=== PATIENT | male | born 1960 | race Caucasian/White ===

== ENCOUNTER 2023-08-11 08:28 | Outpatient (REF) | payer OTHER, SELFPAY | END 2023-08-11 08:29 | disposition home or self-care (01) | LOC: HO.SH 08:28 | PROVIDERS: PCP Internal Medicine; Visit Provider Internal Medicine | DX: H90.3 Sensorineural hearing loss, bilateral (principal) | CPT/HCPCS: 92557 ==

== ENCOUNTER 2024-05-21 08:57 | Outpatient (AMB) | payer OTHER, SELFPAY ==
--- NOTE | 2024-05-21 09:02 | MHC.PC.OV ---
Vital Signs 05/21/24 09:08 Height 5 ft 6.75 in Weight 165 lb BMI 26.0 BP 132/68 Blood Pressure Location Lt brachial Pulse 61 Temp 98.1 F Pulse Oximetry (%) 97 Intake Visit Reasons: physical Intake Note: patient has sore left arm for about 1 month Allergies No Known Allergies Allergy (Verified 05/21/24 09:49) Medication List - Last Reconciled 05/21/24 by Cheo Atwood MD bupropion HCl SR (Wellbutrin SR) 200 mg PO QAM [facility] Medical History (Updated 05/21/24 @ 09:51 by Cheo Atwood MD) Benign prostate hyperplasia Generalized anxiety disorder Physical exam (Primary Care) Vital Signs: Last Vital Signs Temp 98.1 F 05/21/24 09:08 Pulse 61 05/21/24 09:08 BP 132/68 05/21/24 09:08 Pulse Ox 97 05/21/24 09:08 BMI result Body Mass Index 26.0 Coding Level of Care Code New Pt Level 4 (53812) New Pt Prev Care 40-64y(95817) Diagnoses Benign prostate hyperplasia N40.0 Generalized anxiety disorder F41.1 Right shoulder strain S46.911A Annual physical exam Z00.00 Assessment & Plan Assessment & Plan (1) Benign prostate hyperplasia: Code(s): N40.0 - Benign prostatic hyperplasia without lower urinary tract symptoms Category: Medical Plan: PSA testing has been ordered. Urology appt requested. Continue Flomax at same dosage. (2) Generalized anxiety disorder: Code(s): F41.1 - Generalized anxiety disorder Category: Medical Plan: Symptoms are stable on Welbutrin. Continue medications at same dosage. (3) Right shoulder strain: Code(s): S46.911A - Strain of unspecified muscle, fascia and tendon at shoulder and upper arm level, right arm, initial encounter Plan: X ray of the shoulder ordered. (4) Annual physical exam: Code(s): Z00.00 - Encounter for general adult medical examination without abnormal findings Plan: Screening bw has been ordered. Plan History of Present Illness The patient is a 63-year-old male presenting for an annual physical. In addition he has complaints of left arm pain. He reports experiencing soreness as if it were a pulled muscle, which has been persistent for several months without resolution. There is no specific inciting event noted, and the pain persists despite his regular activity levels. Able to lift his arms over shoulder level. The patient maintains good general health otherwise, with no significant weight changes, and describes his overall health as stable. Additionally, he has a history of hepatitis C, which has been treated and resolved, with viral load monitoring discontinued. The patient also reports urinary symptoms consistent with benign prostatic hyperplasia. Despite treatment with Flomax, he continues to experience urinary dribbling and nocturia, though he states that his condition has improved compared to prior. He has seen a urologist within the past year, where no significant anatomical abnormalities were detected, and his PSA levels were deemed unremarkable for his age. 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 - Lives with his girlfriend in [place]. - Regularly walks for exercise and uses 10-pound weights occasionally. - Reports a stable weight around 165 pounds despite occasional ice cream consumption. 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 Review of Systems - Musculoskeletal: Reports persistent left arm pain with full range of motion. - Genitourinary: Reports urinary dribbling; denies split urine stream. - Constitutional: Denies significant weight change. - Neurological: Denies other neurological symptoms. - Sexual: Reports infrequent sexual activity but normal erectile function. Physical Exam General: Cooperative and healthy appearing Nutritional Appearance: Well nourished Orientation/consciousness: Patient oriented x3 Limitations: No limitations Head: Normal to inspection General: Appearance normal, both eyes and all related structures Neck: Normal visual inspection Chest: Normal palpation of entire chest wall Respiratory: Normal respiratory effort Neurology: Patient oriented x3 Gen: Penis: Normal, Scrotum: Normal. Testicles : Normal Results Plan - Obtain an X-ray of the left arm to assess for any underlying joint pathology. - Encourage daily exercise of the left arm to maintain range of motion and muscle strength. - Routine blood work to include anemia, glucose levels, cholesterol, kidney function, liver function, thyroid, and prostate assessments. - Discuss the potential need for an urology follow-up if urinary symptoms persist. - Consider adjustment of current medication regimen or addition of new therapies pending blood work results. Patient was informed and verbally consented to the use of an ambient scribe for clinic note documentation during this visit. Discussion Notes I discussed with the patient the management of his musculoskeletal pain by maintaining daily arm exercises to improve range of motion and muscle strength. I also informed him about obtaining an X-ray to further assess his left arm pain. We reviewed the standard blood work that will be conducted without the necessity of slips, and I explained the straightforward process he can expect at the lab located on [facility] or at the [facility]. In terms of urinary symptoms, I advised him that visiting a urologist may be beneficial if symptoms persist, and that there might be medication options to alleviate his current condition. Follow-up was suggested depending on the outcomes of tests and any exacerbation of symptoms. Patient Instructions - Proceed with an X-ray for your left arm as discussed. - Continue and maintain daily arm exercises to enhance strength and mobility. - Visit lab for routine blood tests as directed without needing a slip. - Monitor urinary symptoms, and schedule a follow-up with a urologist if they do not improve. - Consider integrating more consistent weight exercises to your routine to support muscle maintenance. Orders: Orders XR shoulder RT min 2V Today S43.401A - Unspecified sprain of right shoulder joint, initial encounter
[2024-05-21 09:08] VITALS: BP 132/68; PULSE 61; TEMP 36.7; O2SAT 97; BMI 26.0
--- OUTSIDE RECORDS SUMMARY | 2024-05-21 09:47 | XMS_ITS | Patient Health Record ---
Author Organization Braulio Chang DO, FACP Address [address], [place] [id number] Care Team Providers Care Tool Inspector Name Role Phone BernardoBraulio izaguirre Primary Care Provider ALLERGIES No Known Allergies REASON FOR REFERRAL No Information MEDICATIONS Medication SIG (Take, Route, Frequency, Duration) Notes Start Date End Date Status Tadalafil 20 MG 1 tablet as needed O rally Once a day Active Vitamin D (Cholecalciferol) 50 MCG (2000 UT) 1 capsule Orally Once a day Active buPROPion HCl ER (SR) 200 MG 1 tablet in the morning Orally Once a day for 90 days Active IMMUNIZATIONS Vaccine Route Administration Date Status Comme nts Influenza Quad IM Intramuscular 01/01/2015 Administered Influenza Quad IM Intramuscular 01/05/2016 Administered Influenza Quad IM Intramuscular 03/10/2020 Administered COVID-19 Pfizer BioNTech Unknown 08/08/2020 Administere d Shingrix Unknown 02/25/2021 Administered COVID-19 Pfizer Bivalent Unknown 03/16/2022 Administere d COVID-19 Moderna Vaccine Unknown 02/25/2021 Administere d Shingrix Unknown 04/27/2021 Administered Influenza Quad Unknown 03/16/2022 Administered COVID-19 Pfizer BioNTech Unknown 07/16/2020 Administere d Influenza Unknown 02/26/2019 Refused SOCIAL HISTORY Tobacco Use: Social History Observation Description Date Details (start date - stop date) Never Smoker NA - NA Sex Assigned At : Social History Observation Description Sex Assigned At Unknown Tobacco Use/Smoking Question Answer Notes Patient is a nonsmoker Additional Findings: Tobacco Non-User Cu rrent non-smoker, currently using no form of tobacco Alcohol Screen Question Answer Notes Did you have a drink contain ing alcohol in the past year? Yes How often did you have a dri nk containing alcohol in the past year? 2 to 4 times a month (2 points) How many drinks did you have on a typical day when you were drinking in the past year? 1 or 2 drinks (0 point) How often did you have 6 or more drinks on one occasion in the past year? Never (0 point) Points 2 Interpretation Negative PROBLEMS Problem Type ICD Code Onset Dates Problem Status W/U Status Risk SNOMED Code Notes Problem Tendonitis (M77.9) Active confirmed 72016608 Problem Vitamin D deficiency (E55.9) Active confirmed 78983780 Problem Paresthesia of skin (R20.2) Active confirmed Paresthesia (finding) (60748539) Problem Urinary frequency (R35.0) Active confirmed 001912829 Problem Dysthymia (F34.1) Active confirmed 37814591 Problem Blurred vision (H53.8) Active confirmed Blurred vision (810396597) Problem Benign prostatic hyperplasia with lower urinary tract symptoms (N40.1) Active confirmed [id number] Problem Elevated TSH (R94.6) Active confirmed 476839282 Encounters Encounter Location Date Provider Diagnosis Braulio Chang DO, [facility] [address], [place] [id number] 05/21/2024 Braulio Chang DO, [facility] [address], [place] [phone] 07/18/2023 Braulio Chang PLAN OF TREATMENT Pending Test Test Name Order Date CBC w DIFF 05/16/2023 TSH (THYROID STIMULATING HORMONE) 2023 VITAMIN D 25-OH TOTAL 05/16/2023 Urinalysis and Microscopic 05/16/2023 Liver Panel 05/16/2023 Basic Metabolic Panel Fasting 05/16/2023 Lipid Panel 05/16/2023 PSA,Total (Free>4and<10) 05/16/2023 Microalbumin, Random 05/16/2023 Hemoglobin A1c 05/16/2023 Insurance Providers Payer Name Payer Address Payer Phone Subscriber Number Group Number Insured Name Patient Relationship to Insured Coverage Start Date Coverage End Date [facility] [address] [place] [phone] [id number] Gianluca Avalos Self - patient is the insured MEDICAL (GENERAL) HISTORY Medical History History ICD Code depression hepatitis C, type 1A, in remission gastroesophageal reflux disease (GERD) substance abuse, IVDA, in recovery herpes genitalis cellulitis, right leg Surgical History Surgery Date(Month/Year) adenoidectomy liver biopsy
--- OUTSIDE RECORDS SUMMARY | 2024-05-21 09:47 | XMS_ITS ---
Author Organization Braulio Chang DO, FACP Address [address], [place] [id number] Care Team Providers Care Cash Surrender Calculator Name Role Phone Braulio Chang Primary Care Provider ALLERGIES No Known Allergies REASON FOR REFERRAL Reason Decreased hearing Diagnosis 1 Encounter for genera l adult medical examination without abnormal findings (Z00.00) Referral Organization Braulio Mcghee FACP Referring Provider First Name Braulio Referring Provider Last Name Bernardo Referring Provider Speciality Internal M edicine Referred Provider [facility] [place] [facility] [place] [place] Referred Provider Specialty Audiologists General Notes Arcelia Fabian 4 02:52:54 PM EST > Referral faxed prior to scheduling that office will call patient and patient is aware. Referral Priority Routine Referral Appointment Date 08/11/2023 Reason Urinary frequency Diagnosis 1 Urinary frequency (R 35.0) Referral Organization Braulio Mcghee FACP Referring Provider First Name Braulio Referring Provider Last Name Bernardo Referring Provider Speciality Internal edicine Referred Provider Alec Diaz Referred Provider Specialty Urology General Notes Arcelia Fabian 4 03:58:19 PM EST > Referral and notes faxed to [phone] and they will contact patient with appointment date and time. Patient is aware Referral Priority Routine REASON FOR VISIT physical, annual visit MEDICATIONS Medication SIG (Take, Route, Frequency, Duration) Notes Start Date End Date Status Tadalafil 20 MG 1 tablet as needed O rally Once a day Active Vitamin D (Cholecalciferol) 50 MCG (1999) 1 capsule Orally Once a day Active buPROPion HCl ER (SR) 200 MG 1 tablet in the morning Orally Once a day Active SOCIAL HISTORY Tobacco Use: Social History Observation [...] Never (0 point) Points 2 Interpretation Negative VITAL SIGNS BMI 26.03 kg/m2 05/16/2023 Blood pressure systolic 124 mm Hg 05/16/19 24 Blood pressure diastolic 62 mm Hg 024 Height 66.75 in 05/16/2023 Weight 165 lbs 05/16/2023 Encounters Encounter Location Date Provider Diagnosis Braulio Chang DO, [address] [phone] 05/16/2023 Braulio Chang Encounter for genera l adult medical examination without abnormal findings Z00.00 ; Urinary frequency R35.0 and Vitamin D deficiency E55.9 ASSESSMENTS Encounter Date Diagnosis Assessment Notes Treatment Notes Treatment Clinical Notes 05/16/2023 Encounter for general adult medical examination without abnormal findings (ICD-10 - Z00.00) 05/16/2023 Urinary frequency (ICD-10 - R35.0) 05/16/2023 Vitamin D deficiency (ICD-10 - E55.9) PLAN OF TREATMENT Medication Medication Name Sig Start Date Stop Date Notes Tadalafil 20 MG 1 tablet as needed O rally Once a day Vitamin D (Cholecalciferol) 50 MCG (1999 UT) 1 capsule Orally Once a day buPROPion HCl ER (SR) 200 MG 1 tablet in the morning Orally Once a day Pending Test Test Name Order Date CBC w DIFF 05/16/2023 TSH (THYROID STIMULATING HORMONE) 2023 VITAMIN D 25-OH TOTAL 05/16/2023 Urinalysis and Microscopic 05/16/2023 Liver Panel 05/16/2023 Basic Metabolic Panel Fasting 05/16/2023 Lipid Panel 05/16/2023 PSA,Total (Free>4and<10) 05/16/2023 Microalbumin, Random 05/16/2023 Hemoglobin A1c 05/16/2023 Referrals Referral Date Details 08/11/2023 08/11/2023, Decrease d hearing, Speech & [place] [facility] [place]inary frequency, D john Diaz Next Appt Details Follow Up: 1 Year, Reason: H &P Progress Notes * Examination Category Sub-Category Detail Notes General Examination GENERAL APPEARANCE: well dev eloped, well nourished, in no acute distress HEAD: normocephalic, atrau matic EYES: pupils equal, round, reactive to light and accommodation, sclera non-icteric EARS: auditory canal clear NECK/THYROID: neck supple, full ra nge of motion, no cervical lymphadenopathy, thyroid normal, no carotid bruit HEART: regular rate and rhy thm, S1, S2 normal, no murmurs CHEST: normal LUNGS: clear to auscultatio n bilaterally ABDOMEN: soft, nontender, non distended, bowel sounds present, normal NEUROLOGIC: nonfocal, motor stre ngth normal upper and lower extremities, sensory exam intact SKIN: warm and dry EXTREMITIES: no edema PERIPHERAL PULSES: 2+ dorsalis pedis, 2 + posterior tibial MALE GENITOURINARY no hernia, no penile lesions or discharge, no testicular mass, testes descended bilaterally PSYCH: alert, oriented, cog nitive function intact, cooperative with exam, good eye contact, judgement and insight good History and Physical Notes * HPI (History of Present Illness) Category Sub-Category Detail Notes Depression Screening PHQ-9 Little inte rest or pleasure in doing things: Not at all Feeling down, depressed, or hopeless: No t at all Trouble falling or staying asleep, or sl eeping too much: Not at all Feeling tired or having little energy: N ot at all Poor appetite or overeating: Not at all Feeling bad about yourself o r that you are a failure, or have let yourself or your family down: Not at all Trouble concentrating on thi ngs, such as reading the newspaper or watching television: Not at all Moving or speaking so slowly that other people could have noticed; or the opposite, being so fidgety or restless that you have been moving around a lot more than usual: Not at all Thoughts that you would be b key off or of hurting yourself in some way: Not at all Total Score: 0 Interpretation and Intervention Depression Scree ted Findings: Negative Follow-Up for Depression: : Review of PH Q-9 found negative result; no follow-up needed Fall Risk Fall History Have you had two or more fal ls in the past year?: No Have you had any falls with injury in th e past year?: No Fall Risk Assessment:: No falls in the p ast year Communication Needs PCMH Communication Needs - PCMH He aring Impairment?: Yes mild Vision Impairment?: Yes wears readers Cognitive Impairment?: No SDOH Questions SDOH Questions In the past year have you been worried about losing your housing?: Yes his building para professional may sell the building In the past year have you or any family members you live with been unable to get any of the following when it was really needed? Check all that apply:: None Consultation Request Notes Referral Date Referring Provider Referred Provider Not es 05/16/2023 Braulio Chang [facility] [place] [facility] [place] Dec reased hearing 05/16/2023 Braulio Chang Donald Urinary freq uency
--- OUTSIDE RECORDS SUMMARY | 2024-05-21 09:47 | XMS_ITS ---
Author Organization Braulio Chang DO, FACP Address [address] [place] [phone] Care Team Providers Care Ornamental Plaster Sticker Name Role Phone Braulio Chang Primary Care Provider Encounters Encounter Location Date Provider Diagnosis Braulio Chang DO, FACP [address] [place] [phone] 05/21/2024 Braulio Chang PLAN OF TREATMENT No Information
--- OUTSIDE RECORDS SUMMARY | 2024-05-21 09:47 | XMS_ITS ---
Author Organization Braulio Chang DO, FACP Address [address] [place] [phone] Care Team Providers Care Shank Tapper Name Role Phone Braulio Chang Primary Care Provider REASON FOR VISIT Switch to 90 day from 30 day for Buproprion MEDICATIONS Medication SIG (Take, Route, Frequency, Duration) Notes Start Date End Date Status buPROPion HCl ER (SR) 200 MG 1 tablet in the morning Orally Once a day for 90 days Active Encounters Encounter Location Date Provider Diagnosis Braulio Chang DO, FACP [address] [place] [phone] 07/18/2023 Braulio Chang PLAN OF TREATMENT Medication Medication Name Sig Start Date Stop Date Notes buPROPion HCl ER (SR) 200 MG 1 tablet in the morning Orally Once a day for 90 days
== END 2024-05-21 09:38 | disposition home or self-care (01) ==
LOC: HO.HMCSH 08:57
PROVIDERS: PCP Internal Medicine; Visit Provider Internal Medicine
DX: Z00.00 Encounter for general adult medical examination without abnormal findings (principal); S46.911A Strain of unspecified muscle, fascia and tendon at shoulder and upper arm level, right arm, initial encounter; N40.0 Benign prostatic hyperplasia without lower urinary tract symptoms; F41.1 Generalized anxiety disorder

== ENCOUNTER 2024-06-20 10:49 | Outpatient (REF) | payer OTHER, SELFPAY ==
--- NOTE | ~2024-06-20 | XR_ITS ---
EXAMINATION: XR SHOULDER 2 OR MORE VIEWS LEFT HISTORY: M25.512 - Pain in left shoulder COMPARISON: There are no prior studies available for comparison. FINDINGS: Five views of the left shoulder are submitted. Osseous mineralization is normal. There is no fracture or dislocation. The glenohumeral joint is maintained. There is mild narrowing of the AC joint. The soft tissues are unremarkable. XR/XR shoulder LT min 2V IMPRESSION: Mild narrowing of the AC joint. Electronically signed by: Braulio Marrero MD 06/20/2024 12:21 PM EDT
[2024-06-20 11:59] LABS: Appearance Urine Clear; Color Urine Dark Yellow; Glucose Urine UA Negative (Negative); Leukocyte Esterase Urine Negative (Negative); Nitrite Urine Negative (Negative); PH 5.5 (5.0-9.0); Specific Gravity - Urine >= 1.030 (1.005-1.025); Urine Blood Negative (Negative); Urine Ketones Trace mg/dL (Negative); Urine Protein Negative (Neg-Trace)
[2024-06-20 12:00] LABS: Hemoglobin 14.9 g/dl (14.0-18.0); Mean Corpuscular HGB Conc 35.5 g/dl (31.0-36.0); Mean Corpuscular Hemoglobin 29.2 pg (27.0-33.0); Mean Corpuscular Volume 82.2 fL (80.0-98.0); Mean Platelet Volume 9.2 fL (9.4-12.4); Platelet Count 207 X10*3/uL (160-400); Red Blood Count 5.11 X10*6/uL (4.60-5.80); Red Cell Distribution Width 12.6 % (11.0-16.0)
[2024-06-20 12:43] LABS: Alanine Aminotransferase 47 U/L (0-40); Albumin Level 4.5 g/dL (3.5-5.0); Alkaline Phosphatase 61 U/L (39-117); Anion Gap 10 (12-20); Aspartate Amino Transferase 34 U/L (5-37); Bilirubin Direct 0.4 mg/dL (0.0-0.5); Bilirubin Total 1.6 mg/dL (0.0-1.0); Blood Urea Nitrogen 18 mg/dL (9-16); Calcium 9.2 mg/dL (8.4-10.2); Carbon Dioxide 25 mmol/L (22-29); Chloride 108 mmol/L (96-108); Cholesterol 210 mg/dL (<200); Estimated Glomerular Filt Rate > 60; Glucose Random 149 mg/dL (60-115); HDL Cholesterol 54 mg/dL (>40); LDL Cholesterol Calculated 134 mg/dL (<100); Potassium 4.4 mmol/L (3.3-5.1); Sodium 139 mmol/L (135-145); Total Protein 7.5 g/dL (6.5-8.0); Triglycerides 114 mg/dL (<150)
[2024-06-20 12:54] LABS: Prostate Specific Antigen Scr 0.86 ng/mL (<0.05-4.0)
[2024-06-20 13:00] LABS: Thyroid Stimulating Hormone 2.95 uIU/mL (0.32-4.0)
[2024-06-20 13:58] LABS: Estimated Average Glucose 146 mg/dL; Hemoglobin A1c % 6.7 % (<6.0); Total Hemoglobin (HGBA1C) 3861.6168 umol/L
== END 2024-06-20 10:50 | disposition home or self-care (01) ==
LOC: HO.LAB 10:49
PROVIDERS: Physician Assistant Medical; PCP Internal Medicine; Visit Provider Internal Medicine
DX: Z00.00 Encounter for general adult medical examination without abnormal findings (principal); F41.1 Generalized anxiety disorder; N40.0 Benign prostatic hyperplasia without lower urinary tract symptoms; M25.512 Pain in left shoulder; Z12.5 Encounter for screening for malignant neoplasm of prostate; Z13.1 Encounter for screening for diabetes mellitus
CPT/HCPCS: 36415; 73030; 80048; 80061; 80076; 81003; 83036; 84153; 84443; 85027

== ENCOUNTER → 2024-06-20 11:15 | Outpatient (BNV) | payer OTHER, SELFPAY | PROVIDERS: PCP Internal Medicine; Visit Provider Radiology Diagnostic Radiology | DX: M25.512 Pain in left shoulder (principal) | CPT/HCPCS: 73030 ==

== ENCOUNTER 2024-08-27 13:09 | Outpatient (AMB) | payer OTHER, SELFPAY ==
[2024-08-27 13:25] VITALS: BP 122/62; PULSE 68; RESP 16; TEMP 36.4; O2SAT 98; BMI 25.9
--- NOTE | 2024-08-27 13:25 | MHC.PC.OV ---
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: No Accompanied by: Self / Same As Patient Allergies No Known Allergies Allergy (Verified 08/27/24 13:26) Tobacco use date assessed: 08/27/24 Dental Screening Dental Screen Date: 08/27/24 Did you have a dental visit in the last 12 months?: Yes Did you have a dental problem in the last 6 months where you did not have access to dental care?: No Was dental information given to patient?: Patient has dentist [facility] Medical History Left shoulder pain Benign prostate hyperplasia Generalized anxiety disorder Surgical History History of colonoscopy (~07/08/22) Family History (Updated 08/27/24 @ 13:32 by ANGELA Vergara) Mother Lymphoma Father Arthritis Social History (Updated 08/27/24 @ 13:32 by ANGELA Vergara) Housing: Apartment Alcohol intake: current Alcohol intake frequency: a few times a month Alcohol type: beer Patient Tobacco Use Status: Never used Tobacco service: No Current occupational status: employed Cognitive needs: No Hearing needs: No Vision needs: Yes (rx glasses ) Questionnaire PHQ-9 Over the last 2 weeks, how often have you been bothered by any of the following problems? 1. Little interest or pleasure in doing things: not at all 2. Feeling down, depressed, or hopeless: not at all 3. Trouble falling or staying asleep, or sleeping too much: not at all 4. Feeling tired or having little energy: not at all 5. Poor appetite or overeating: not at all 6. Feeling bad about yourself - or that you are a failure or have let yourself or your family down: not at all 7. Trouble concentrating on things, such as reading the newspaper or watching television: not at all 8. Moving or speaking so slowly that other people could have noticed. Or the opposite - being so fidgety or restless that you have been moving around a lot more than usual: not at all 9. Thoughts that you would be better off or of hurting yourself in some way: not at all Total score: 0 Source: Developed by Drs. Braulio Daily, Elisha Carmona, Jonn Wilde and colleagues, with an educational sha from [employer]. Thrive Questionnaire Date Thrive assessed: 08/27/24 I am a: Patient What is your living situation today?: I have a steady place to live Within the past 12 months, did the food you bought not last and you didn't have the money to get more?: Never true Within the past 12 months, did you worry whether your food would run out before you got money to buy more?: Never true Do you have trouble paying for medicines?: No Do you have trouble getting transportation to medical appointments?: No Do you have trouble paying your heating and electricity bill?: No Do you have trouble taking care of your child, family member or friend?: No Do you have trouble with day-to-day activities such as bathing, preparing meals, shopping, managing finances, etc.?: No Are you currently unemployed and looking for a job?: No Are you interested in more education?: No Please select the resources that you would like help with: None THRIVE Score: 0 AUDIT C Alcohol Use Questionnaire (AUDIT-C) 1. How often do you have a drink containing alcohol?: 2-3 times a week 2. How many drinks containing alcohol do you have on a typical day when you are drinking?: 1 or 2 3. How often do you have six or more drinks on one occasion?: Never Total Score: 3 BRIAN-7 AMB Questionnaire BRIAN-7 Date BRIAN - 7 assessed: 08/27/24 Feeling nervous, anxious, or on edge: 0 = Not at all Not being able to stop or control worryin = Not at all Worrying too much about different things: 0 = Not at all Trouble relaxin = Not at all Being so restless that it is hard to sit still: 0 = Not at all Becoming easily annoyed or irritable: 0 = Not at all Feeling afraid as if something awful might happen: 0 = Not at all Total BRIAN-7 score (0-4 normal; 5-9 mild; 10-14 moderate; 15-21 severe): 0 Source: Developed by Drs. Braulio Daily, Elisha Carmona, Jonn Wilde and colleagues, with an educational sha from [employer]. Physical exam (Primary Care) Vital Signs: Last Vital Signs Temp 97.5 F 08/27/24 13:25 Pulse 68 08/27/24 13:25 Resp 16 08/27/24 13:25 BP 122/62 08/27/24 13:25 Pulse Ox 98 08/27/24 13:25 Oxygen Delivery Method Room Air 08/27/24 13:25 BMI result Body Mass Index 25.9 Tobacco/Smoking Status: Tobacco use Status Tobacco use date assessed 08/27/24 08/27/24 13:33 Patient Tobacco Use Status Never used Tobacco 08/27/24 13:33 PHQ-9: PHQ-9 Score PHQ-9: Total score 0 08/27/24 13:33 Thrive Assessment: Date of Thrive Assessment Date Thrive assessed 08/27/24 08/27/24 13:33 Coding Level of Care Code Est Pt Level 4 (90071) Complex EM visit Add On G2211 Diagnoses Left shoulder pain M25.512 Assessment & Plan Assessment & Plan (1) Left shoulder pain: Code(s): M25.512 - Pain in left shoulder Category: Medical Plan: X rays revd. Ortho referral made Plan History of Present Illness The patient is a 63-year-old male presenting with an exacerbation of shoulder pain due to osteoarthritis. He was previously diagnosed with arthritis in the shoulder following x-ray imaging and a phone consultation confirmed the condition. Over time, the severity of the shoulder pain has increased, with spikes reaching a level 8 intensity on a scale of 1 to 10, particularly when pressure is applied by lying on the shoulder. The pain has hindered his ability to sleep on the affected side. Despite performing recommended shoulder exercises, relief has been minimal, as the pain continues to result in periodic mild discomfort and more severe episodes. Social History - Employment: The patient is frequently active in his work environment at [employer], involving walking and using stairs extensively. - Vacation plans: He plans to travel to [place] and [facility] with his girlfriend during the summer. - Exercise: Engages in regular physical activities including walking and stair usage. Review of Systems - Musculoskeletal: Reports worsening shoulder pain. - General: Denies recent changes in activity level but reports recent drowsiness possibly related to a cold. - Neurological: Denies falling asleep while driving. - Sleep: Reports mild obstructive sleep apnea with snoring and previous sleep study confirming mild sleep apnea. Physical Exam General: Cooperative and healthy appearing Nutritional Appearance: Well nourished Orientation/consciousness: Patient oriented x3 Limitations: No limitations Head: Normal to inspection General: Appearance normal, both eyes and all related structures Neck: Normal visual inspection Chest: Normal palpation of entire chest wall Respiratory: N ormal respiratory effort Neurology: Patient oriented x3, reports increased drowsiness, possibly related to recent cold and mild sleep apnea. Results - Imaging: Previous shoulder x-ray results indicated the presence of arthritis. - Sleep: Recent sleep study, utilizing a monitoring ring, confirmed mild obstructive sleep apnea. Plan 1. Osteoarthritis Of The Shoulder - Prescribe anti-inflammatory medications for symptom relief. - Consult franchise specialist for potential steroid injection and possible arthroscopic surgery. 2. Mild Obstructive Sleep Apnea - Continue with the current management plan; monitoring symptoms as needed. 3. Benign Prostatic Hyperplasia - Patient should continue taking Tamsulosin as effective. 4. Type 2 Diabetes Mellitus - Patient to continue Metformin and adhere to dietary modifications. Discussion Notes I discussed with the patient that his shoulder pain is likely exacerbated by the osteoarthritis originally identified in imaging studies. To manage the exacerbation, I proposed initiating treatment with anti-inflammatory medication and a referral to an franchise specialist for possible steroid injections. The orthopedic consult would also include evaluating the efficacy of injections and considering arthroscopic procedures if needed. In addressing his benign prostatic hyperplasia, I reinforced the importance of continuing Tamsulosin, which has been effective. I also discussed his type 2 diabetes management, noting the significant dietary changes and associated weight loss with Metformin. I offered reassurance regarding mild obstructive sleep apnea, as it has been monitored and evaluated. Patient Instructions - Take anti-inflammatory medication as prescribed for shoulder pain relief. - Schedule and attend appointment with the franchise specialist. - Continue taking Tamsulosin for prostate health. - Maintain Metformin treatment for diabetes and adhere to dietary modifications. - Monitor symptoms of drowsiness or changes in sleep patterns. - Follow-up as needed if symptoms worsen or do not improve. Orders: Referrals Orthopedics Referral M25.512 - Pain in left shoulder Medications: Refilled bupropion HCl SR (Wellbutrin SR) 200 mg PO QAM 90 tabs 1RF metformin 500 mg PO DAILY 90 tabs 1RF tamsulosin 0.4 mg PO DAILY 90 caps 1RF
== END 2024-08-27 13:57 | disposition home or self-care (01) ==
LOC: HO.HMCSH 13:09
PROVIDERS: PCP Internal Medicine; Visit Provider Internal Medicine
DX: M25.512 Pain in left shoulder (principal)

== ENCOUNTER → 2024-08-27 13:09 | Outpatient (BNVA) | payer OTHER, SELFPAY | PROVIDERS: PCP Internal Medicine; Visit Provider Internal Medicine | DX: Z13.89 Encounter for screening for other disorder (principal) ==

== ENCOUNTER 2024-10-24 09:39 | Outpatient (AMB) | payer OTHER, SELFPAY ==
--- NOTE | 2024-10-24 09:48 | MHC.OFFVIS ---
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 Patient reports that he has had ongoing left shoulder pain, worse when pressure is applied on the shoulder like when lying on it. Pain is impacting his daily activities despite home exercise program. He reports that his pain has improved very slighty but continues to be painful daily. He will take Tylenol/ ibuprfen on occasionally with mild relief. Denies numbness and tingling. He has some painful and limited ROM. No injectios or formal therapies. 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 Patient reports that he has had ongoing left shoulder pain, worse when pressure is applied on the shoulder like when lying on it. Pain is impacting his daily activities despite home exercise program. He reports that his pain has improved very slighty but continues to be painful daily. He will take Tylenol/ ibuprfen on occasionally with mild relief. Denies numbness and tingling. He has some painful and limited ROM. No injectios or formal therapies. [facility] Medical History Left shoulder pain Benign prostate hyperplasia Generalized anxiety disorder Surgical History History of colonoscopy (~07/08/22) Family History (Updated 08/27/24 @ 13:32 by ANGELA Vergara) Mother Lymphoma Father Arthritis Social History (Updated 08/27/24 @ 13:32 by ANGELA Vergara) Housing: Apartment Alcohol intake: current Alcohol intake frequency: a few times a month Alcohol type: beer Patient Tobacco Use Status: Never used Tobacco service: No Current occupational status: employed Cognitive needs: No Hearing needs: No Vision needs: Yes (rx glasses ) Physical Exam Extrem Other: Full range of motion left shoulder. He has a mildly positive Phillips and Neer but otherwise unremarkable exam. Strong rotator cuff. Excellent motion. Results Reviewed Results Reviewed: I personally reviewed relevant radiographs. nl shoulder radiographs. Possible mild narrowing AC joint. Assessment & Plan Assessment & Plan (1) Impingement syndrome, shoulder, left: Code(s): M75.42 - Impingement syndrome of left shoulder Category: Medical Plan: This is a 63-year-old gentleman with mild impingement syndrome that is occasionally symptomatic. I reviewed the pathophysiology with him. His internal structures appear strong and I do not recommend injections given his minimal pain complaints. I did recommend physical therapy for strengthening if his pain worsens he can return to see me today. Orders: Orders PT Evaluation and Treatment 10/24/24 M75.42 - Impingement syndrome of left shoulder Coding Level of Care Code New Pt Level 3 (20023) Diagnoses Impingement syndrome, shoulder, left M75.42
== END 2024-10-24 10:15 | disposition home or self-care (01) ==
LOC: HO.HOS 09:40
PROVIDERS: PCP Internal Medicine; Visit Provider Orthopaedic Surgery
DX: M75.42 Impingement syndrome of left shoulder (principal)
CPT/HCPCS: 99203

== ENCOUNTER → 2024-10-24 09:39 | Outpatient (BNVA) | payer OTHER, SELFPAY | PROVIDERS: PCP Internal Medicine; Visit Provider Orthopaedic Surgery | DX: M75.42 Impingement syndrome of left shoulder (principal) | CPT/HCPCS: 99203; J0665; J1100; J2003 ==